=== PATIENT | male | born 1975 | race Caucasian/White ===

== ENCOUNTER 2023-02-09 13:41 | Emergency (ER) | payer OTHER, MEDICARE, SELFPAY ==
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
[2023-02-09 13:58] VITALS: BP 143/92; BP 150/100; PULSE 115; PULSE 96; RESP 20; TEMP 36.6; O2SAT 98; BMI 36.4
[2023-02-09] MEDS: Acetaminophen 325 MG TABLET 975 MG PO (14:52)
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
[2023-02-09 16:45] VITALS: BP 171/96; PULSE 77; RESP 16; O2SAT 100
== END 2023-02-09 16:48 | disposition home or self-care (01) ==
PROVIDERS: Emergency Provider Emergency Medicine Emergency Medical Services
DX: S39.012A Strain of muscle, fascia and tendon of lower back, initial encounter (principal); V43.52XA Car driver injured in collision with other type car in traffic accident, initial encounter; Y93.89 Activity, other specified; Y92.414 Local residential or business street as the place of occurrence of the external cause; Y99.9 Unspecified external cause status
CPT/HCPCS: 72100; 99283; 99284